=== PATIENT | female | born 1940 | race Caucasian/White ===

== ENCOUNTER 2019-01-18 06:31 | Day surgery (SDC) | payer BC, MEDICARE ==
[2019-01-18 06:52] VITALS: BP 145/73; PULSE 62
[2019-01-18] MEDS ORDERED: Sodium Chloride 0.9% 10 ML Syringe FLUSH PRN (07:00)
--- NOTE | 2019-01-18 15:32 | OR ---
DATE OF PROCEDURE: 01/18/2019 SURGEON: Ev Albrecht MD POSTOPERATIVE CARE: Postoperative care will be provided mainly at the [address] [place] [address] [facility] in conjunction with [facility]. PREOPERATIVE DIAGNOSIS: Cataract, right eye. POSTOPERATIVE DIAGNOSIS: Cataract, right eye. PROCEDURE: Phacoemulsification with intraocular lens placement, right eye. ANESTHESIA: Topical and intracameral. ESTIMATED BLOOD LOSS: Minimal. COMPLICATIONS: None. PATHOLOGY SPECIMENS: None. SURGICAL FINDINGS: None. INDICATION FOR PROCEDURE: The patient is a 78-year-old female with history of a visually significant cataract in the right eye, which interfered with activities of daily living. This consisted of a nuclear sclerosis cataract. Following careful discussion of the risks, benefits and alternatives to cataract extraction with intraocular lens placement including blindness and , the patient elected to proceed, and informed, written consent was obtained prior to the procedure. DESCRIPTION OF THE PROCEDURE: The patient was previously identified, and a esthela placed above the right eye. All sources, including the patient, indicated that the right eye was the correct eye. The patient was subsequently taken to the operating room where standard monitors were applied. The patient was then prepped and draped in the usual sterile fashion for ophthalmic surgery. Attention was first directed at the 12 o'clock position where a paracentesis port was fashioned. Shugar solution followed by Viscoat was instilled into the eye. Attention was then directed to the 8:30 position where a triplanar incision was made in a near-clear manner using a keratome. A continuous capsulorrhexis was then made using a combination of the cystotome and Utrata forceps. Hydrodissection was achieved using a balanced salt solution, and the lens rotated nicely. Phacoemulsification was then done using a modified gijant-xiw-cgiyvag technique without complication. Phaco time was 8.14 CDE. The remaining cortex was removed using the irrigation/aspiration handpiece. Provisc was then instilled into the eye. A Technis lens, model [id number], at 22.5 diopters was then placed in the capsular bag using an [place] injector. The remaining viscoelastic was removed using the irrigation/aspiration forceps. All wounds were then checked and found to be watertight. The lid speculum and drapes were removed. Maxitrol ointment was placed in the patient's right eye, and the eye was shielded. The patient tolerated the procedure well. The patient was instructed to follow up tomorrow. All needle and sponge counts were correct at the end of the procedure. Ev Albrecht MD /[id number]
== END 2019-01-18 08:35 | disposition home or self-care (01) ==
LOC: JP.SDS 06:31
PROVIDERS: ATTEND Ophthalmology
DX: H25.11 Age-related nuclear cataract, right eye (principal); I10 Essential (primary) hypertension; K21.9 Gastro-esophageal reflux disease without esophagitis; E66.9 Obesity, unspecified; Z88.5 Allergy status to narcotic agent; Z85.038 Personal history of other malignant neoplasm of large intestine; Z68.32 Body mass index [BMI] 32.0-32.9, adult
CPT/HCPCS: 66984; V2632

== ENCOUNTER 2019-02-01 06:48 | Day surgery (SDC) | payer MEDICARE ==
[2019-02-01] MEDS ORDERED: amLODIPine 5 MG Tab PO ONE (07:21)
[2019-02-01] MEDS ORDERED: Hydrochlorothiazide/Triamterene 25-37.5 Tab PO ONE (07:22)
[2019-02-01] MEDS ORDERED: Sodium Chloride 0.9% 10 ML Syringe FLUSH PRN (07:30)
[2019-02-01 09:14] VITALS: BP 171/87; PULSE 64
--- NOTE | 2019-02-01 14:31 | OR ---
DATE OF PROCEDURE: 02/01/2019 SURGEON: Ev Albrecht MD POSTOPERATIVE CARE: Postoperative care will be provided mainly at the [address] [place] [address] [facility] in conjunction with [facility]. PREOPERATIVE DIAGNOSIS: Cataract, left eye. POSTOPERATIVE DIAGNOSIS: Cataract, left eye. PROCEDURE: Phacoemulsification with intraocular lens placement, left eye. ANESTHESIA: Topical and intracameral. ESTIMATED BLOOD LOSS: Minimal. COMPLICATIONS: None. PATHOLOGY SPECIMENS: None. SURGICAL FINDINGS: None. INDICATION FOR PROCEDURE: The patient is a 78-year-old female with history of a visually significant cataract in the left eye, which interfered with activities of daily living. This consisted of a nuclear sclerosis cataract. Following careful discussion of the risks, benefits and alternatives to cataract extraction with intraocular lens placement including blindness and , the patient elected to proceed, and informed, written consent was obtained prior to the procedure. DESCRIPTION OF THE PROCEDURE: The patient was previously identified, and a esthela placed above the left eye. All sources, including the patient, indicated that the left eye was the correct eye. The patient was subsequently taken to the operating room where standard monitors were applied. The patient was then prepped and draped in the usual sterile fashion for ophthalmic surgery. Attention was first directed at the 12 o'clock position where a paracentesis port was fashioned. Shugar solution followed by Viscoat was instilled into the eye. Attention was then directed to the 8:30 position where a triplanar incision was made in a near-clear manner using a keratome. A continuous capsulorrhexis was then made using a combination of the cystotome and Utrata forceps. Hydrodissection was achieved using a balanced salt solution, and the lens rotated nicely. Phacoemulsification was then done using a modified fabrxm-vpj-ygziuxr technique without complication. Phaco time was 8.68 CDE. The remaining cortex was removed using the irrigation/aspiration handpiece. Provisc was then instilled into the eye. A Technis lens, model [id number], at 22.0 diopters was then placed in the capsular bag using an [place] injector. The remaining viscoelastic was removed using the irrigation/aspiration forceps. All wounds were then checked and found to be watertight. The lid speculum and drapes were removed. Maxitrol ointment was placed in the patient's left eye, and the eye was shielded. The patient tolerated the procedure well. The patient was instructed to follow up tomorrow. All needle and sponge counts were correct at the end of the procedure. Ev Albrecht MD /[id number]
== END 2019-02-01 09:05 | disposition home or self-care (01) ==
LOC: JP.SDS 06:48
PROVIDERS: ATTEND Ophthalmology
DX: H25.12 Age-related nuclear cataract, left eye (principal); I10 Essential (primary) hypertension; K21.9 Gastro-esophageal reflux disease without esophagitis; E66.9 Obesity, unspecified; F41.9 Anxiety disorder, unspecified; Z88.2 Allergy status to sulfonamides; Z88.5 Allergy status to narcotic agent; Z85.038 Personal history of other malignant neoplasm of large intestine; Z68.31 Body mass index [BMI] 31.0-31.9, adult
CPT/HCPCS: 66984; A9270; V2632

== ENCOUNTER 2019-03-08 08:41 | Day surgery (SDC) | payer MEDICARE ==
[2019-03-08] MEDS ORDERED: Dextrose 5%-Lactated Ringers 1,000 ML IV SCH (10:00)
[2019-03-08] MEDS ORDERED: Midazolam 1 MG/ML 2 ML SDV ONE (10:33)
[2019-03-08] MEDS ORDERED: fentaNYL 100 MCG/2 ML SDV ONE (10:33)
[2019-03-08] MEDS ORDERED: Propofol 200 MG/20 ML SDV ONE (10:34)
[2019-03-08 12:33] VITALS: BP 134/82; PULSE 65
--- NOTE | 2019-03-16 12:05 | OR ---
DATE OF PROCEDURE: 03/08/2019 SURGEON: Apollo Escalante MD PREOPERATIVE DIAGNOSIS: History of colon carcinoma. POSTOPERATIVE DIAGNOSES: 1. History of colon carcinoma. 2. A single polyp located within sigmoid colon. OPERATIVE PROCEDURE: colonoscopy with polypectomy by snare technique. ANESTHESIA: IV sedation. INDICATION FOR PROCEDURE: This is a 78-year-old status post a right colectomy for colon carcinoma 4 years ago. The plan is to proceed with a followup screening colonoscopy. Potential risks including bleeding and perforation were discussed, and the patient wishes to proceed. DETAILS OF PROCEDURE: The patient was taken to the operating room and placed in a left lateral decubitus position. IV sedation was administered after which the initial digital rectal exam was performed and was unremarkable. Colonoscope was then passed into the rectum with retroflexion revealing uncomplicated hemorrhoidal columns. The scope was then eventually passed to the level of the ileal to transverse colon anastomosis. Prep was generally quite good with there being a small amount of liquid stool present, but the vast majority of the mucosal surfaces were well visualized. There appeared to be no evidence of any local recurrence of the ileocolic anastomosis. There was a single polyp measuring around 3 to 4 mm located at 30 cm from the dentate line, i.e. in the mid sigmoid colon. This was encircled with the snare and removed through the cautery snare technique. This was evacuated and sent for histologic evaluation. Good hemostasis at the polypectomy site was confirmed, and the scope was withdrawn with the above findings reconfirmed. The patient was taken to the recovery room in satisfactory condition. Assuming the present polyp is benign, the patient should probably have a repeat colonoscopy in 2 years. Apollo Escalante MD /[id number]
== END 2019-03-08 12:43 | disposition home or self-care (01) ==
LOC: JP.SDS 08:41
PROVIDERS: ATTEND Surgery
DX: Z12.11 Encounter for screening for malignant neoplasm of colon (principal); D12.5 Benign neoplasm of sigmoid colon; K64.9 Unspecified hemorrhoids; I10 Essential (primary) hypertension; E66.9 Obesity, unspecified; K21.9 Gastro-esophageal reflux disease without esophagitis; F41.9 Anxiety disorder, unspecified; Z90.49 Acquired absence of other specified parts of digestive tract; Z85.038 Personal history of other malignant neoplasm of large intestine
CPT/HCPCS: 45385; 88305; J2250; J2704; J3010; J7042

== ENCOUNTER 2021-03-06 06:06 | Day surgery (SDC) | payer MEDICARE ==
[2021-03-06] MEDS: Dextrose 5%-Lactated Ringers 1,000 ML IV SCH (06:24)
[2021-03-06] MEDS ORDERED: Propofol 200 MG/20 ML SDV ONE (06:52)
[2021-03-06] MEDS ORDERED: fentaNYL 100 MCG/2 ML SDV ONE (06:52)
[2021-03-06 08:48] VITALS: BP 139/67; PULSE 61
--- NOTE | 2021-03-07 22:25 | OR ---
DATE OF PROCEDURE: 03/06/2021 SURGEON: Apollo Escalante MD PREOPERATIVE DIAGNOSIS: History of right colon carcinoma. POSTOPERATIVE DIAGNOSES: 1. History of right colon carcinoma. 2. No recurrent colorectal pathology. OPERATIVE PROCEDURE: Flexible colonoscopy. ANESTHESIA: IV sedation. INDICATION FOR PROCEDURE: This is a 80-year-old status post right colectomy done in 2014 for adenocarcinoma. Plan is to proceed with a followup colonoscopy with biopsies and polypectomy as indicated. Potential risks including bleeding and perforation were discussed, and the patient wishes to proceed. DETAILS OF PROCEDURE: The patient was taken to the operating room and placed in a left lateral decubitus position. IV sedation was administered, after which the initial digital rectal exam was performed and was unremarkable. Colonoscope was passed into the rectum with retroflexion revealing uncomplicated hemorrhoidal columns. The scope was eventually passed to the ileocolic anastomosis. The prep was good with only small liquid stool being present to that level. There were no areas of diverticular disease, no areas of colitis, no polyps or other signs of neoplasia. Scope was then withdrawn and the above findings reconfirmed, and the procedure then concluded. one might consider a repeat colonoscopy in 5 years. Apollo Escalante MD Job #: [id number]
== END 2021-03-06 09:00 | disposition home or self-care (01) ==
LOC: JP.SDS 06:06
PROVIDERS: ATTEND Surgery
DX: Z12.11 Encounter for screening for malignant neoplasm of colon (principal); K64.9 Unspecified hemorrhoids; I10 Essential (primary) hypertension; K21.9 Gastro-esophageal reflux disease without esophagitis; E66.9 Obesity, unspecified; Z88.8 Allergy status to other drugs, medicaments and biological substances; Z85.038 Personal history of other malignant neoplasm of large intestine
CPT/HCPCS: G0105; J2704; J3010; J7121

== ENCOUNTER 2024-01-18 05:44 | Inpatient (IN) | payer MEDICARE ==
[2024-01-18 06:34] LABS: HEMATOCRIT 38.4 % (34.3-46.0); HEMOGLOBIN 13.6 g/dL (11.2-15.5); MEAN CORPUSCULAR HEMOGLOBIN 30.5 pg (31.6-35.5); MEAN CORPUSCULAR HGB CONC 35.4 g/dL (31.6-35.5); MEAN CORPUSCULAR VOLUME 86.1 fL (81.4-99.0); RED BLOOD CELL COUNT 4.46 M/uL (3.77-5.24); WHITE BLOOD CELL COUNT,WBC 7.8 K/uL (3.2-11.0)
[2024-01-18] MEDS: Nozin Nasal Sanitizer NASBOTH SCH ×2 (06:40→20:18)
[2024-01-18] MEDS: Lactated Ringers 1,000 ML IV SCH (06:40)
[2024-01-18 06:46] LABS: CALCIUM 9.3 mg/dL (8.5-10.1); EST CRCL DRUG DOSING (CG) 35.7 mL/min; POTASSIUM,K 3.5 mmol/L (3.6-5.2)
[2024-01-18 07:04] LABS: PROTHROMBIN TIME 10.4 sec (9.2-10.6); PTT,PARTIAL THROMBOPLSTIN TIME 24.3 sec (21.8-27.3)
[2024-01-18] MEDS ORDERED: Propofol 200 MG/20 ML SDV ONE (07:13)
[2024-01-18] MEDS ORDERED: Midazolam 1 MG/ML 2 ML SDV ONE (07:13)
[2024-01-18] MEDS ORDERED: fentaNYL 100 MCG/2 ML SDV ONE ×3 (07:13→09:36)
[2024-01-18 07:19] LABS: ANION GAP 10.5 mmol/L (5.0-14.0)
[2024-01-18] MEDS ORDERED: Docusate Sodium 100 MG Cap PO PRN (07:26)
[2024-01-18] MEDS ORDERED: Ondansetron 4 MG/2 ML SDV IVPUSH PRN (07:26)
[2024-01-18] MEDS ORDERED: Magnesium Hydroxide 400 MG/5 ML Susp 30 ML Cup PO PRN ×2 (07:26→07:28)
[2024-01-18] MEDS ORDERED: oxyCODONE 5 MG Tab PO PRN ×2 (07:26)
[2024-01-18] MEDS ORDERED: Morphine 2 MG/ML SYRINGE IVPUSH PRN (07:26)
[2024-01-18] MEDS: ceFAZolin 2 GM in Premix Bag 1 BAG IV ONE (07:27)
[2024-01-18] MEDS ORDERED: Loperamide 2 MG Cap PO PRN (07:28)
[2024-01-18] MEDS ORDERED: Hydrocortisone 1% Crm 30 GM Tube TOP PRN (07:28)
[2024-01-18] MEDS ORDERED: Calcium Carbonate 500 MG Tab.Chew PO PRN (07:28)
[2024-01-18] MEDS ORDERED: diphenhydrAMINE 25 MG Cap PO PRN (07:28)
[2024-01-18] MEDS ORDERED: Glycerin Pediatric 1.2 GM Supp RECTAL PRN (07:28)
[2024-01-18] MEDS ORDERED: Bacitracin Oint 28.35 GM Tube TOP PRN (07:46)
[2024-01-18] MEDS ORDERED: Menthol 10%/Methyl Salicylate 15% 85 GM Tube TOP PRN (07:52)
[2024-01-18] MEDS ORDERED: Rocuronium 50 MG/5 ML Vial ONE (08:21)
[2024-01-18] MEDS ORDERED: Succinylcholine 200 MG/10 ML MDV ONE (08:21)
[2024-01-18] MEDS ORDERED: Glycopyrrolate 0.2 MG/ML 5 ML MDV ONE (08:21)
[2024-01-18] MEDS ORDERED: Neostigmine Methylsulfate 10 MG/10 ML MDV ONE (08:21)
[2024-01-18] MEDS ORDERED: Dexamethasone 4 MG/ML SDV ONE (08:21)
[2024-01-18] MEDS ORDERED: Ondansetron 4 MG/2 ML SDV ONE (08:21)
[2024-01-18] MEDS ORDERED: Lactated Ringers 1,000 ML ONE (08:25)
[2024-01-18] MEDS: Bupivacaine 0.5% 50 ML MDV ONE (08:46)
[2024-01-18] MEDS ORDERED: hydrALAZINE 20 MG/ML SDV ONE (09:56)
[2024-01-18] MEDS: Ketorolac 15 MG/ML SDV IVPUSH PRN (11:13)
[2024-01-18] MEDS: Sodium Chloride 0.9% 1,000 ML IV SCH (11:14)
[2024-01-18] MEDS: Hydrochlorothiazide/Triamterene 25-37.5 Tab PO SCH (12:29)
[2024-01-18] MEDS: Acetaminophen 325 MG Tab PO SCH (12:29)
[2024-01-18] MEDS: traMADol 50 MG Tab PO PRN (13:51)
[2024-01-18] MEDS: ceFAZolin 2 GM in Premix Bag 1 BAG IV SCH (15:21)
[2024-01-19] MEDS: Aspirin 325 MG Tab.EC PO SCH (09:33)
[2024-01-19] MEDS: Citalopram 10 MG Tab PO SCH (09:33)
[2024-01-19] MEDS: amLODIPine 5 MG Tab PO SCH (09:35)
[2024-01-19] MEDS: Multivitamins with Iron/Calcium/Folic Acid/Minerals Tab PO SCH (09:36)
[2024-01-19] MEDS: ACEBUTOLOL 200 MG PO SCH (09:37)
[2024-01-20 11:37] VITALS: BP 115/54; PULSE 65
== END 2024-01-20 13:31 | DRG 470 ==
LOC: JP.SDS 05:44 → JP.MS 07:27 → JP.SDS 01-19 08:46 → JP.MS 01-19 08:46
PROVIDERS: ADMIT Specialist; ATTEND Specialist
PROC: 0SRC069 Replacement of Right Knee Joint with Oxidized Zirconium on Polyethylene Synthetic Substitute, Cemented, Open Approach (ICD-10-PCS; principal; 2024-01-19)
DX: M17.11 Unilateral primary osteoarthritis, right knee (principal); I10 Essential (primary) hypertension; F41.9 Anxiety disorder, unspecified; H91.92 Unspecified hearing loss, left ear; Z88.5 Allergy status to narcotic agent; Z85.038 Personal history of other malignant neoplasm of large intestine; Z79.82 Long term (current) use of aspirin; Z79.899 Other long term (current) drug therapy
CPT/HCPCS: 01402-QZ; 36415; 73560-26-RT; 73560-RT; 80048; 85027; 85610; 85730; 93005; 93010; 97110-GO; 97110-GP; 97116-GP; 97162-GP; 97165-GO; 97530-GP; 97535-GO; A9270-GY; C1713; C1776; J0330; J0360; J0665; J0690; J1100; J1596; J1885; J2250; J2405; J2704; J2710; J3010; J3490; J7030; J7120

== ENCOUNTER 2024-02-08 08:41 | Inpatient (IN) | payer MEDICARE ==
[~2024-02-08 08:41] MED LIST: Bupivacaine 0.5% 30 ML SDV ONE
[2024-02-08 09:15] LABS: BASOPHILS ABSOLUTE AUTO 0.08 K/uL (0.00-0.10); BASOPHILS PERCENT AUTO 1.3 % (0.1-1.3); EOSINOPHILS ABSOLUTE AUTO 0.18 K/uL (0.00-0.40); HEMATOCRIT 33.4 % (34.3-46.0); HEMOGLOBIN 11.3 g/dL (11.2-15.5); IMMATURE GRAN ABSOLUTE AUTO 0.09 K/uL (0.00-0.23); IMMATURE GRAN PERCENT AUTO 1.5 % (0.0-0.7); LYMPHOCYTES ABSOLUTE AUTO 1.25 K/uL (0.8-3.3); LYMPHOCYTES PERCENT AUTO 21.1 % (11.4-47.7); MEAN CORPUSCULAR HEMOGLOBIN 29.5 pg (31.6-35.5); MEAN CORPUSCULAR HGB CONC 33.8 g/dL (31.6-35.5); MEAN CORPUSCULAR VOLUME 87.2 fL (81.4-99.0); MONOCYTES ABSOLUTE AUTO 0.57 K/uL (0.20-0.90); MONOCYTES PERCENT AUTO 9.6 % (3.3-12.6); NEUTROPHILS ABSOLUTE AUTO 3.76 K/uL (1.0-7.6); NEUTROPHILS PERCENT AUTO 63.5 % (40.0-78.1); PLATELET COUNT,PLT 377 K/uL (130-375); RED BLOOD CELL COUNT 3.83 M/uL (3.77-5.24); WHITE BLOOD CELL COUNT,WBC 5.9 K/uL (3.2-11.0)
[2024-02-08] MEDS ORDERED: Dexamethasone 4 MG/ML SDV ONE (09:29)
[2024-02-08] MEDS ORDERED: fentaNYL 250 MCG/5 ML SDV ONE (09:29)
[2024-02-08] MEDS ORDERED: Succinylcholine 200 MG/10 ML MDV ONE (09:29)
[2024-02-08] MEDS ORDERED: Ondansetron 4 MG/2 ML SDV ONE (09:29)
[2024-02-08] MEDS ORDERED: Propofol 200 MG/20 ML SDV ONE ×2 (09:29→10:56)
[2024-02-08] MEDS ORDERED: Rocuronium 50 MG/5 ML Vial ONE (09:29)
[2024-02-08 09:30] LABS: CALCIUM 9.2 mg/dL (8.5-10.1); CREATININE 0.8 mg/dL (0.6-1.0); EST CRCL DRUG DOSING (CG) 45.62 mL/min; POTASSIUM,K 3.9 mmol/L (3.6-5.2)
[2024-02-08] MEDS ORDERED: Ondansetron 4 MG/2 ML SDV IVPUSH PRN (09:30)
[2024-02-08] MEDS ORDERED: Docusate Sodium 100 MG Cap PO PRN (09:30)
[2024-02-08] MEDS ORDERED: Magnesium Hydroxide 400 MG/5 ML Susp 30 ML Cup PO PRN ×2 (09:30→09:34)
[2024-02-08] MEDS ORDERED: Ketorolac 30 MG/ML SDV IVPUSH PRN (09:30)
[2024-02-08 09:31] LABS: ANION GAP 9.9 mmol/L (5.0-14.0)
[2024-02-08] MEDS ORDERED: Calcium Carbonate 500 MG Tab.Chew PO PRN (09:34)
[2024-02-08] MEDS: Nozin Nasal Sanitizer NASBOTH ONE (09:49)
[2024-02-08] MEDS: Lactated Ringers 1,000 ML IV SCH (09:50)
[2024-02-08] MEDS: ceFAZolin 1 GM in Premix Bag 1 BAG IV ONE (10:00)
[2024-02-08] MEDS ORDERED: fentaNYL 100 MCG/2 ML SDV ONE ×2 (10:37→11:31)
[2024-02-08] MEDS ORDERED: hydrALAZINE 20 MG/ML SDV ONE (10:38)
[2024-02-08] MEDS ORDERED: Lactated Ringers 1,000 ML ONE (11:17)
[2024-02-08] MEDS: traMADol 50 MG Tab PO PRN (12:39)
[2024-02-08] MEDS: Acetaminophen 325 MG Tab PO SCH (14:08)
[2024-02-08] MEDS: Morphine 2 MG/ML SYRINGE IVPUSH PRN (14:08)
[2024-02-08] MEDS: Cyclobenzaprine 10 MG Tab PO PRN (14:17)
[2024-02-08] MEDS: Sodium Chloride 0.9% 1,000 ML IV SCH (16:29)
[2024-02-08] MEDS: Ketorolac 15 MG/ML SDV IVPUSH PRN (17:53)
[2024-02-08] MEDS: Aspirin 325 MG Tab.EC PO SCH (20:37)
[2024-02-08] MEDS: Nozin Nasal Sanitizer NASBOTH SCH (20:37)
[2024-02-09 06:00] LABS: CREATININE 0.8 mg/dL (0.6-1.0); EST CRCL DRUG DOSING (CG) 45.62 mL/min; VANCOMYCIN RANDOM 19.6 ug/mL (0.0-50.0)
[2024-02-09] MEDS: Multivitamins with Iron/Calcium/Folic Acid/Minerals Tab PO SCH (08:24)
[2024-02-09] MEDS: Hydrochlorothiazide/Triamterene 25-37.5 Tab PO SCH (08:24)
[2024-02-09] MEDS: ACEBUTOLOL 200 MG PO SCH (08:27)
[2024-02-09] MEDS: Citalopram 10 MG Tab PO SCH (08:27)
[2024-02-09] MEDS: amLODIPine 5 MG Tab PO SCH (08:31)
[2024-02-09 08:50] LABS: BASOPHILS ABSOLUTE AUTO 0.07 K/uL (0.00-0.10); BASOPHILS PERCENT AUTO 0.9 % (0.1-1.3); EOSINOPHILS PERCENT AUTO 3.9 % (0.0-5.4); HEMATOCRIT 31.8 % (34.3-46.0); HEMOGLOBIN 10.9 g/dL (11.2-15.5); IMMATURE GRAN ABSOLUTE AUTO 0.16 K/uL (0.00-0.23); IMMATURE GRAN PERCENT AUTO 2.1 % (0.0-0.7); LYMPHOCYTES ABSOLUTE AUTO 0.89 K/uL (0.8-3.3); LYMPHOCYTES PERCENT AUTO 11.6 % (11.4-47.7); MEAN CORPUSCULAR HGB CONC 34.3 g/dL (31.6-35.5); MEAN CORPUSCULAR VOLUME 87.6 fL (81.4-99.0); MONOCYTES ABSOLUTE AUTO 0.51 K/uL (0.20-0.90); MONOCYTES PERCENT AUTO 6.7 % (3.3-12.6); NEUTROPHILS ABSOLUTE AUTO 5.71 K/uL (1.0-7.6); NEUTROPHILS PERCENT AUTO 74.8 % (40.0-78.1); PLATELET COUNT,PLT 300 K/uL (130-375); RED BLOOD CELL COUNT 3.63 M/uL (3.77-5.24); WHITE BLOOD CELL COUNT,WBC 7.6 K/uL (3.2-11.0)
[2024-02-09 09:13] LABS: SEDIMENTATION RATE MANUAL 51 mm/hr (0-25)
[2024-02-10 05:27] LABS: CREATININE 0.6 mg/dL (0.6-1.0); EST CRCL DRUG DOSING (CG) 60.83 mL/min
[2024-02-11 05:13] LABS: CREATININE 0.7 mg/dL (0.6-1.0); EST CRCL DRUG DOSING (CG) 52.14 mL/min; VANCOMYCIN RANDOM 13.3 ug/mL (0.0-50.0)
[2024-02-13 05:24] VITALS: PULSE 68
[2024-02-13 11:16] VITALS: BP 150/61
== END 2024-02-13 13:05 | DRG 486 ==
LOC: JP.SDS 08:41 → JP.ICU 09:32 → JP.SDS 12:28 → JP.ICU 12:29
PROVIDERS: ADMIT Physician Assistant; ATTEND Specialist
PROC: 0SBC0ZZ Excision of Right Knee Joint, Open Approach (ICD-10-PCS; 2024-02-08)
PROC: 0LBQ0ZZ Excision of Right Knee Tendon, Open Approach (ICD-10-PCS; 2024-02-08)
PROC: 02HV33Z Insertion of Infusion Device into Superior Vena Cava, Percutaneous Approach (ICD-10-PCS; principal; 2024-02-08 10:03)
DX: T84.53XA Infection and inflammatory reaction due to internal right knee prosthesis, initial encounter (principal); T81.30XA Disruption of wound, unspecified, initial encounter; I10 Essential (primary) hypertension; K21.9 Gastro-esophageal reflux disease without esophagitis; Z68.33 Body mass index [BMI] 33.0-33.9, adult; E66.9 Obesity, unspecified; F41.9 Anxiety disorder, unspecified; B95.8 Unspecified staphylococcus as the cause of diseases classified elsewhere; Z85.038 Personal history of other malignant neoplasm of large intestine
CPT/HCPCS: 00400-QZ; 36415; 80048; 80202; 82565; 85025; 85610; 85651; 86140; 87070; 87075; 87077; 87186; 87205; 97110-GP; 97116-GP; 97161-GP; 97530-GP; 99231; A9270-GY; C1751; C1776; J0330; J0360; J0665; J0689; J1100; J1885; J2270; J2405; J2704; J3010; J3370; J3490; J7030; J7050; J7120

== ENCOUNTER 2024-02-28 15:18 | Day surgery (SDC) | payer MEDICARE ==
[2024-02-28] MEDS: Lactated Ringers 1,000 ML IV SCH (15:45)
[2024-02-28] MEDS ORDERED: fentaNYL 100 MCG/2 ML SDV ONE (16:08)
[2024-02-28] MEDS ORDERED: Propofol 200 MG/20 ML SDV ONE ×2 (16:08→17:12)
[2024-02-28 18:19] VITALS: BP 165/58; PULSE 65
[2024-02-29] MEDS: Bupivacaine 0.5% 30 ML SDV ONE (12:57)
== END 2024-02-28 18:48 | disposition home or self-care (01) ==
LOC: JP.SDS 15:18
PROVIDERS: ATTEND Specialist
DX: M25.551 Pain in right hip (principal); I10 Essential (primary) hypertension; K21.9 Gastro-esophageal reflux disease without esophagitis; Z88.2 Allergy status to sulfonamides
CPT/HCPCS: 01200; 20610; 76000; J0665; J2704; J3010; J7120

== ENCOUNTER 2024-11-16 17:19 | Inpatient (IN) | payer MEDICARE ==
[2024-11-16 18:24] LABS: PLATELET COUNT,PLT 195 K/uL (130-375); RED BLOOD CELL COUNT 4.25 M/uL (3.77-5.24); WHITE BLOOD CELL COUNT,WBC 7.8 K/uL (3.2-11.0)
[2024-11-16 18:38] LABS: BLOOD UREA NITROGEN,BUN 20.0 mg/dL (7-18); CARBON DIOXIDE,CO2 31.0 mmol/L (21-32); CHLORIDE,CL 99.0 mmol/L (100-108); CREATININE 1.0 mg/dL (0.6-1.0); EST CRCL DRUG DOSING (CG) 35.88 mL/min; ESTIMATED GFR 56.0 mL/min (>60); GLUCOSE RANDOM 113.0 mg/dL (74-106); POTASSIUM,K 3.3 mmol/L (3.6-5.2); SODIUM,NA 137.0 mmol/L (140-148)
[2024-11-16 18:51] LABS: LYMPHOCYTES ABSOLUTE MAN 0.78 K/uL (0.8-3.3); LYMPHOCYTES PERCENT MAN 10 % (24-44); METAMYELOCYTE ABSOLUTE MAN 0.23 K/uL; METAMYELOCYTE PERCENT MAN 3 %; MONOCYTES ABSOLUTE MAN 0.31 K/uL (0.20-0.90); MONOCYTES PERCENT MAN 4 % (2-6); NEUTROPHILS ABSOLUTE MAN 6.47 K/uL (1.0-7.6); SEG NEUTROPHILS PERCENT MAN 83 % (36-66)
[2024-11-16] MEDS ORDERED: Naloxone 0.4 MG/ML SDV IVPUSH PRN (20:25)
[2024-11-16] MEDS ORDERED: Magnesium Hydroxide 400 MG/5 ML Susp 30 ML Cup PO PRN (21:07)
[2024-11-16] MEDS: Potassium Chloride 20 MEQ Tab.ER PO SCH (22:07)
[2024-11-17 05:49] LABS: PLATELET COUNT,PLT 179 K/uL (130-375); RED BLOOD CELL COUNT 4.02 M/uL (3.77-5.24); WHITE BLOOD CELL COUNT,WBC 9.1 K/uL (3.2-11.0)
[2024-11-17 06:05] LABS: BLOOD UREA NITROGEN,BUN 16.0 mg/dL (7-18); CARBON DIOXIDE,CO2 31.0 mmol/L (21-32); CHLORIDE,CL 99.0 mmol/L (100-108); CREATININE 0.8 mg/dL (0.6-1.0); EST CRCL DRUG DOSING (CG) 44.85 mL/min; ESTIMATED GFR 74.0 mL/min (>60); GLUCOSE RANDOM 107.0 mg/dL (74-106); POTASSIUM,K 3.6 mmol/L (3.6-5.2); SODIUM,NA 136.0 mmol/L (140-148)
[2024-11-17 06:12] LABS: APPEARANCE,URINE CLEAR (CLEAR); GLUCOSE,URINE NEGATIVE (NEGATIVE); OCCULT BLOOD,URINE NEGATIVE (NEGATIVE)
[2024-11-17 06:18] LABS: LYMPHOCYTES ABSOLUTE MAN 1.27 K/uL (0.8-3.3); LYMPHOCYTES PERCENT MAN 14 % (24-44); METAMYELOCYTE ABSOLUTE MAN 0.36 K/uL; METAMYELOCYTE PERCENT MAN 4 %; MONOCYTES ABSOLUTE MAN 0.64 K/uL (0.20-0.90); MONOCYTES PERCENT MAN 7 % (2-6); NEUTROPHILS ABSOLUTE MAN 6.83 K/uL (1.0-7.6); SEG NEUTROPHILS PERCENT MAN 75 % (36-66)
[2024-11-17 06:20] LABS: EPITHELIAL CELLS,URINE NOT SEEN
[2024-11-17] MEDS: Multivitamins with Iron/Calcium/Folic Acid/Minerals Tab PO SCH (08:58)
[2024-11-17] MEDS: ACEBUTOLOL 200 MG PO SCH (12:44)
[2024-11-18 05:47] LABS: PLATELET COUNT,PLT 140.0 K/uL (130-375); RED BLOOD CELL COUNT 3.64 M/uL (3.77-5.24); WHITE BLOOD CELL COUNT,WBC 7.6 K/uL (3.2-11.0)
[2024-11-18 06:03] LABS: BLOOD UREA NITROGEN,BUN 13.0 mg/dL (7-18); CARBON DIOXIDE,CO2 31.0 mmol/L (21-32); CHLORIDE,CL 102.0 mmol/L (100-108); CREATININE 0.8 mg/dL (0.6-1.0); EST CRCL DRUG DOSING (CG) 44.85 mL/min; ESTIMATED GFR 74.0 mL/min (>60); GLUCOSE RANDOM 108.0 mg/dL (74-106); POTASSIUM,K 3.6 mmol/L (3.6-5.2); SODIUM,NA 137.0 mmol/L (140-148)
[2024-11-18] MEDS ORDERED: fentaNYL 250 MCG/5 ML SDV ONE (07:20)
[2024-11-18] MEDS ORDERED: Succinylcholine 200 MG/10 ML MDV ONE (07:21)
[2024-11-18] MEDS ORDERED: Dexamethasone 4 MG/ML SDV ONE (07:21)
[2024-11-18] MEDS ORDERED: Glycopyrrolate 0.2 MG/ML 5 ML MDV ONE (07:21)
[2024-11-18] MEDS ORDERED: Propofol 200 MG/20 ML SDV ONE (07:21)
[2024-11-18] MEDS ORDERED: Ondansetron 4 MG/2 ML SDV ONE (07:21)
[2024-11-18] MEDS ORDERED: Lactated Ringers 1,000 ML ONE (08:51)
[2024-11-18] MEDS ORDERED: ePHEDrine 50 MG/ML SDV ONE (08:57)
[2024-11-19 05:48] LABS: PLATELET COUNT,PLT 154.0 K/uL (130-375); RED BLOOD CELL COUNT 3.31 M/uL (3.77-5.24); WHITE BLOOD CELL COUNT,WBC 12.0 K/uL (3.2-11.0)
[2024-11-19 06:05] LABS: BLOOD UREA NITROGEN,BUN 20.0 mg/dL (7-18); CARBON DIOXIDE,CO2 31.0 mmol/L (21-32); CHLORIDE,CL 99.0 mmol/L (100-108); CREATININE 1.0 mg/dL (0.6-1.0); EST CRCL DRUG DOSING (CG) 35.88 mL/min; ESTIMATED GFR 56.0 mL/min (>60); GLUCOSE RANDOM 150.0 mg/dL (74-106); POTASSIUM,K 4.2 mmol/L (3.6-5.2); SODIUM,NA 133.0 mmol/L (140-148)
[2024-11-19] MEDS: Magnesium Hydroxide 400 MG/5 ML Susp 30 ML Cup PO PRN (17:23)
[2024-11-20 06:28] LABS: BLOOD UREA NITROGEN,BUN 27.0 mg/dL (7-18); CARBON DIOXIDE,CO2 32.0 mmol/L (21-32); CHLORIDE,CL 97.0 mmol/L (100-108); CREATININE 0.9 mg/dL (0.6-1.0); EST CRCL DRUG DOSING (CG) 39.87 mL/min; ESTIMATED GFR 64.0 mL/min (>60); GLUCOSE RANDOM 97.0 mg/dL (74-106); POTASSIUM,K 4.6 mmol/L (3.6-5.2); SODIUM,NA 133.0 mmol/L (140-148)
[2024-11-20] MEDS: ACEBUTOLOL 200 MG PO SCH (09:19)
[2024-11-20] MEDS: Lactobacillus Rhamnosus GG (Probiotic) Cap PO SCH (09:20)
[2024-11-20 11:08] VITALS: BP 108/45; PULSE 79
== END 2024-11-20 13:01 | DRG 481 ==
LOC: JP.ED 17:19 → JP.ICU 20:28
PROVIDERS: ADMIT Internal Medicine; ATTEND Specialist
PROC: 0QSB04Z Reposition Right Lower Femur with Internal Fixation Device, Open Approach (ICD-10-PCS; principal; 2024-11-16)
DX: S72.401A Unspecified fracture of lower end of right femur, initial encounter for closed fracture (principal); M97.8XXA Periprosthetic fracture around other internal prosthetic joint, initial encounter; I10 Essential (primary) hypertension; E87.6 Hypokalemia; H91.90 Unspecified hearing loss, unspecified ear; H54.7 Unspecified visual loss; K21.9 Gastro-esophageal reflux disease without esophagitis; Z68.28 Body mass index [BMI] 28.0-28.9, adult; K80.20 Calculus of gallbladder without cholecystitis without obstruction; W18.30XA Fall on same level, unspecified, initial encounter; M19.90 Unspecified osteoarthritis, unspecified site; F41.9 Anxiety disorder, unspecified; Z96.651 Presence of right artificial knee joint; F32.A Depression, unspecified; E66.9 Obesity, unspecified; Z68.30 Body mass index [BMI] 30.0-30.9, adult; Z88.8 Allergy status to other drugs, medicaments and biological substances; Z85.038 Personal history of other malignant neoplasm of large intestine; Z79.899 Other long term (current) drug therapy; Z98.49 Cataract extraction status, unspecified eye; Z88.2 Allergy status to sulfonamides; Z90.49 Acquired absence of other specified parts of digestive tract; Z90.710 Acquired absence of both cervix and uterus
CPT/HCPCS: 01360-QZ; 36415; 51701; 73560-26-RT; 73560-RT; 80048; 81001; 85025; 85027; 93005; 96374; 97161-GP; 97530-GP; 99222; 99232; 99238; 99285; 99285-25; A9270-GY; C1713; C1758; J0330; J0690; J1100; J1171; J1596; J2405; J2704; J2710; J3010; J3490; J7030; J7120